=== PATIENT | male | born 2000 | race African-American/Black ===

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

== ENCOUNTER 2021-04-10 03:11 | Emergency (ER) | payer OTHER ==
[2021-04-10] MEDS ORDERED: diphenhydrAMINE 50 MG/ML VIAL ONE (03:29)
[2021-04-10] MEDS ORDERED: Metoclopramide HCl 10 MG/2 ML VIAL ONE ×2 (03:29→04:32)
== END 2021-04-10 05:07 | disposition home or self-care (01) ==
LOC: ERS 03:11
DX: R51.9 Headache, unspecified (principal)
CPT/HCPCS: 96365; 96372; 96375; J1200; J2765